=== PATIENT | male | born 1960 | race Caucasian/White ===

== ENCOUNTER 2017-01-24 10:43 | Emergency (ER) | payer BC ==
[~2017-01-24] VITALS: Ht 180.3 cm; Wt 102.6 kg
[2017-01-24] MEDS ORDERED: FLEXERIL10 MG PO (12:10)
[2017-01-24] MEDS ORDERED: PREDNISONE10 MG PO (12:10)
[2017-01-24] MEDS ORDERED: ULTRAM50 MG PO (12:10)
[2017-01-24 12:38] VITALS: BP 147/98
== END 2017-01-24 12:52 | disposition home or self-care (01) ==
LOC: EME 10:43
DX: M54.42 Lumbago with sciatica, left side (principal); I10 Essential (primary) hypertension; E78.5 Hyperlipidemia, unspecified; E05.00 Thyrotoxicosis with diffuse goiter without thyrotoxic crisis or storm; F17.200 Nicotine dependence, unspecified, uncomplicated
CPT/HCPCS: 72100; 99281; 99283; J1100; J1885